=== PATIENT | female | born 2000 | race Caucasian/White ===

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

== ENCOUNTER 2018-10-27 23:50 | Outpatient (CLI) | payer OTHER ==
[~2018-10-27] VITALS: Ht 162.6 cm; Wt 80.1 kg
[~2018-10-27 23:50] MED LIST: ACET500C5 PO; IBUP-1542 PO
[2018-10-28 00:13] VITALS: BP 115/77; PULSE 88; RESP 18
[2018-10-28] MEDS ORDERED: TERBUTALINE 1 MG/ML INJ SC ONE (02:00)
--- NOTE | 2018-10-28 03:23 | PN ---
Triage Information Date/Time Oct 28, 2018 Reason for visit: DFM Weeks of Gestation 34w 5d /Para 2/0 Diabetes: none Hypertention: none Additional information Pt reported one hour of decreased movement and lower abdominal pain prior to coming to the hospital. No leaking or bleeding. Objective Vital Signs Date Temp Pulse Resp B/P (MAP) Pulse Ox O2 O2 Flow FiO2 Time Delivery Rate 10/28/18 98.7 88 18 115/77 Room Air 00:13 (90) Heart Rate: 130's Heart Rate Comments Accels to 160 BPM. No decels. Contractions: < 5 Minutes Apart Results/Medications Imaging Results BPP 05/28 with an MARIBEL of 17.1 cm. VTX. Disposition: Discharge Assessment/Plan A: IUP at 34w 5d. Decreased FM. False labor. P: Pt given p.o. hydration and one dose of SQ terbutaline and the contractions stopped and the pain went away. She is now feeling the baby move. D/C home. Labor precautions reviewed. MIREYA SAMPSON MD Oct 28, 2018 03:23
--- NOTE | 2018-10-28 06:09 | TRIAGE ---
OB Triage Datetime Report Generated by CPN: 10/28/2018 06:09 Datetime: 10/28/2018 01:43 Stage of : OB Triage Labor Evaluation Frequency: 5-7 Monitor Mode: External Quality: Mild Pattern: Normal: <= 5 Contractions in 10 Minutes Resting Tone [place]: Relaxed Datetime: 10/28/2018 00:58 Stage of : OB Triage Monitor Mode: External Quality: Mild Pattern: Normal: <= 5 Contractions in 10 Minutes Resting Tone [place]: Relaxed Heart Rate FHR Baseline Rate: 130 FHR Baseline Changes: No Baseline Change Variability: Moderate 6-25 bpm Accelerations: 15X15 Decelerations: None Category: Category I Datetime: 10/28/2018 00:45 Time of Arrival: 10/27/2018 23:42 EGA: 34.4 Arrived By: Ambulatory Arrived From: Home Chief Complaint: c/o lower abd pain constant since 2299 and no FM x 1 hr. States "felt wierd p ain and thinks baby turned." Movement: Absent Contractions: Denies/Absent Rupture of Membranes: Denies Vaginal Bleeding: None Vaginal Discharge: Denies Recent Sexual Intercouse: Denies Abdominal Trauma: Not Applicable Patient Complaints: Other Time Provider Notified: 10/28/2018 00:57 Provider Notified: Dr Roberts Initial Plan: EFM Datetime: 10/28/2018 00:30 Stage of : OB Triage Monitor Mode: External Quality: Mild Pattern: Normal: <= 5 Contractions in 10 Minutes Resting Tone [place]: Relaxed Heart Rate FHR Baseline Rate: 130 Monitor Mode: External US FHR Baseline Changes: No Baseline Change Variability: Moderate 6-25 bpm Accelerations: 15X15 Decelerations: None Category: Category I Comments: Pt states she now feel baby active Datetime: 10/28/2018 00:06 Stage of : OB Triage Maternal Assessment Level of Consciousness: Fully Conscious Headache: Denies Blurred Vision: No Respiratory Effort: Unlabored Nausea/Vomiting: Denies RUQ Epigastric Pain: Denies Facial Edema: None Monitor Mode: External Resting Tone [place]: Relaxed Heart Rate FHR Baseline Rate: 140 Monitor Mode: External US Pain Assessment Pain Scale: 4 Pain Presence: Constant Pain Type: Stabbing Pain Location: Abdomen
== END 2018-10-28 03:20 | disposition home or self-care (01) ==
LOC: OBT 23:50 → L-D 23:50 → OBT 10-28 03:20
PROVIDERS: ATTEND Specialist
DX: O36.8130 Decreased fetal movements, third trimester, not applicable or unspecified (principal); O47.03 False labor before 37 completed weeks of gestation, third trimester; Z3A.34 34 weeks gestation of pregnancy
CPT/HCPCS: 76818; 96372; J3105; Z7500; G0463